=== PATIENT | male | born 1960 | race Asian ===

== ENCOUNTER → 2022-08-19 12:52 | Outpatient (CLI) | payer BC, SELFPAY ==
[2022-08-19 14:16] LABS: Prostate Specific Antigen 1.44 ng/mL (0.10-4.00)
== END ==
PROVIDERS: PCP Nurse Practitioner Family; Referring Provider Specialist; Visit Provider Specialist
DX: E11.69 Type 2 diabetes mellitus with other specified complication (principal); N52.1 Erectile dysfunction due to diseases classified elsewhere
CPT/HCPCS: 36415; 84153